=== PATIENT | male | born 1995 | race Caucasian/White ===

== ENCOUNTER 2017-10-28 15:38 | Emergency (ER) | payer OTHER ==
[2017-10-28 15:45] VITALS: BP 134/78; PULSE 95; TEMP 98.4; BMI 33.3
--- NOTE | 2017-10-28 15:45 | PDOC ---
Rapid Medical Evaluation Time Seen by Provider: 10/28/17 15:40 Medical Evaluation: 10/28/17 15:40 Pt. is a 22 y/o M who presents to the ED with R upper back pain for 5 days. States that laughing, coughing, deep breaths make it worse. States that it is sharp and intermittent. Has not taken any medication for the pain Exam: Ambulatory, no respiratory distress. Pt. points to R flank/upper back, but pain is not reproducible with palpation Orders: Nothing Pt. to proceed to FT for further evaluation
--- NOTE | 2017-10-28 16:18 | PDOC ---
History of Present Illness - General Chief Complaint: Pain Stated Complaint: RT SIDE PAIN Time Seen by Provider: 10/28/17 15:40 History Source: Patient Exam Limitations: No Limitations - History of Present Illness Initial Comments: 10/28/17 16:15 22-year-old male without significant past medical history presents emergency Department with right mid back pain with any deep inspiration or cough. Patient states the pain started approximately 4 days ago. He denies any trauma, fevers, chills, shortness of breath, nausea, vomiting, chest pain, abdominal pain. Past History - Past Medical History Allergies/Adverse Reactions: Allergies Allergy/AdvReac Type Severity Reaction Status Date / Time erythromycin base Allergy Verified 10/28/17 15:40 Home Medications: Ambulatory Orders NK [No Known Home Medication] 10/28/17 COPD: No - Suicide/Smoking/Psychosocial Hx Smoking History: Never smoked Have you smoked in the past 12 months: No Information on smoking cessation initiated: No Hx Alcohol Use: No Drug/Substance Use Hx: No Substance Use Type: None Review of Systems - Review of Systems Able to Perform ROS?: Yes Is the patient limited Mauritian proficient: No Constitutional: No: Symptoms Reported HEENTM: No: Symptoms Reported Respiratory: Yes: See HPI Cardiac (ROS): No: Symptoms Reported ABD/GI: No: Symptoms Reported : No: Symptoms Reported Musculoskeletal: Yes: See HPI Integumentary: No: Symptoms Reported Neurological: No: Symptoms reported Endocrine: No: Symptoms Reported Hematologic/Lymphatic: No: Symptoms Reported *Physical Exam - Vital Signs Last Vital Signs Temp Pulse Resp BP Pulse Ox 98.4 F 95 H 18 134/78 100 10/28/17 15:41 10/28/17 15:41 10/28/17 15:41 10/28/17 15:41 10/28/17 15:41 - Physical Exam General Appearance: Yes: Appropriately Dressed. No: Apparent Distress HEENT: positive: Normal ENT Inspection Neck: positive: Trachea midline, Supple Respiratory/Chest: positive: Lungs Clear, Normal Breath Sounds. negative: Respiratory Distress, Accessory Muscle Use Cardiovascular: positive: Regular Rhythm, Regular Rate. negative: Murmur Gastrointestinal/Abdominal: positive: Normal Bowel Sounds, Soft. negative: Tender Musculoskeletal: positive: Normal Inspection. negative: CVA Tenderness Extremity: positive: Normal Inspection Integumentary: positive: Normal Color, Dry, Warm Neurologic: positive: Alert, Normal Response ED Treatment Course - RADIOLOGY Radiology Studies Ordered: Category Date Time Status CHEST PA & LAT [RAD] Stat Radiology 10/28/17 16:12 Ordered Medical Decision Making - Medical Decision Making 10/28/17 16:17 A/P: 22-year-old male without medical history with right mid back pain at the ribline for 4 days Respirations even nonlabored Lungs clear to auscultation bilaterally Abdomen soft nontender nondistended No CVA tenderness Urinalysis, urine culture, chest x-ray, reassess 10/28/17 16:44 Urinalysis is unremarkable. X-rays read by me: Angles clear. Cardiac silhouette is within normal limits. No focal consolidations or infiltrate noted. Visualized osseous structures intact. I'll discharge the patient home to follow-up with his primary doctor symptoms do not resolve within the next 3 days. All physical exam findings and laboratory testing discussed with patient verbalizes understanding of testing and discharge instructions. *DC/Admit/Observation/Transfer Diagnosis at time of Disposition: Costal margin pain - Discharge Dispostion Disposition: HOME Condition at time of disposition: Stable Decision to Admit order: No - Referrals Referrals: Gomez Small MD [Primary Care Provider] - - Patient Instructions Additional Instructions: Take Tylenol or Motrin as needed for pain. Follow manufacture's instructions for appropriate dosage. Return to emergency department for severe pain, shortness of breath, fevers, chills, chest pain or any other concerns. Thank you very much for choosing us to provide or emergent health care needs. - Post Discharge Activity
[2017-10-28 16:31] LABS: URINE APPEARANCE CLEAR; URINE BILIRUBIN NEGATIVE (<2.0 mg/dL); URINE COLOR LTYELLOW; URINE GLUCOSE (UA) NEGATIVE (NEGATIVE); URINE KETONE NEGATIVE (NEGATIVE); URINE LEUK ESTERASE NEGATIVE (NEGATIVE); URINE NITRITE NEGATIVE (NEGATIVE); URINE PROTEIN NEGATIVE (NEGATIVE); URINE UROBILINOGEN NEGATIVE mg/dL (0.2-1.0)
== END 2017-10-28 16:58 | disposition home or self-care (01) ==
LOC: JERFT 15:38
DX: M94.0 Chondrocostal junction syndrome [Tietze] (principal)
CPT/HCPCS: 71046-TC-FY; 81003; 87086; 99281-25